=== PATIENT | female | born 1995 | race Caucasian/White ===

== ENCOUNTER 2018-06-02 17:58 | Emergency (ER) | payer MEDICAID ==
[~2018-06-02] VITALS: Ht 162.6 cm; Wt 47.3 kg
[2018-06-02 18:09] VITALS: Ht 162.6 cm; Wt 47.3 kg
[2018-06-02 20:56] VITALS: BP 110/72
== END 2018-06-02 20:57 | disposition home or self-care (01) ==
LOC: ED 17:58
DX: L03.116 Cellulitis of left lower limb (principal); L02.416 Cutaneous abscess of left lower limb